=== PATIENT | female | born 1975 | race Caucasian/White ===

== ENCOUNTER → 2016-11-11 | Outpatient (CLI) | payer OTHER ==
--- NOTE | 2016-11-11 15:32 | RAD ---
HISTORY: Right axillary fullness COMPARISON: None available Focused ultrasound images were obtained of the right axilla. A mammogram was recommended to the patient as well as full breast ultrasound and the patient declined. FINDINGS: On focused ultrasound of the right axilla in the region of lump there is subcutaneous fat as well as musculature seen without a drainable fluid collection or a definite sonographically visible focal mass. IMPRESSION: Subcutaneous fat and musculature is seen on focused ultrasound of the right axilla. The patient was recommended diagnostic mammogram as well as full right breast ultrasound and declined. It is recommended that the patient obtain a mammogram to further evaluate given their concern for axillary fullness.
== END | disposition home or self-care (01) ==
LOC: KCIC US 14:48
PROVIDERS: ATTEND Family Medicine
DX: M79.9 Soft tissue disorder, unspecified (principal)
CPT/HCPCS: 76641

== ENCOUNTER → 2019-05-23 | Outpatient (CLI) | payer BC, OTHER ==
[2019-05-23 10:47] LABS: BASO # 0.2 x10^3/uL (0.0-0.2); BASO % 3 % (0-3); EOS # 0.2 x10^3/uL (0.0-0.7); EOS % 3 % (0-3); HEMATOCRIT 45.3 % (36.0-47.0); HEMOGLOBIN 15.2 g/dL (12.0-15.5); LYMPH # 2.1 x10^3/uL (1.0-4.8); LYMPH % 30 % (24-48); MEAN CORPUSCULAR HEMOGLOBIN 29 pg (25-35); MEAN CORPUSCULAR HGB CONC 34 g/dL (31-37); MEAN CORPUSCULAR VOLUME 85 fL (79-100); MONO # 0.5 x10^3/uL (0.0-1.1); MONO % 7 % (0-9); NEUT % 58 % (31-73); PLATELET COUNT 309 x10^3/uL (140-400); RED BLOOD COUNT 5.31 x10^6/uL (3.50-5.40); RED CELL DISTRIBUTION WIDTH 14.7 % (11.5-14.5)
[2019-05-23 11:13] LABS: ALBUMIN 4.2 g/dL (3.4-5.0); CALCIUM 8.9 mg/dL (8.5-10.1); CREATININE 0.9 mg/dL (0.6-1.0); GFR 68.3; POTASSIUM 3.5 mmol/L (3.5-5.1); TOTAL BILIRUBIN 0.9 mg/dL (0.2-1.0); TOTAL PROTEIN 8.3 g/dL (6.4-8.2)
[2019-05-23 11:15] LABS: CHOLESTEROL/HDL RATIO 3.8
[2019-05-23 11:23] LABS: FREE T4 0.92 ng/dL (0.76-1.46); THYROID STIM HORMONE (TSH) 1.729 uIU/mL (0.358-3.74)
[2019-05-24 04:13] LABS: HEMOGLOBIN A1C 5.6 % (4.8-5.6)
== END | disposition home or self-care (01) ==
LOC: LAB 10:14
PROVIDERS: ATTEND Family Medicine
DX: Z01.84 Encounter for antibody response examination (principal); Z20.9 Contact with and (suspected) exposure to unspecified communicable disease
CPT/HCPCS: 36415; 80053; 80061; 83036; 84439; 84443; 85025; 86703; 86706; 86803